=== PATIENT | female | born 1930 | race Caucasian/White ===

== ENCOUNTER → 2018-02-19 | Outpatient (CLI) | payer OTHER, BC | LOC: HYPER 07:00 → EDBD 07:00 → HYPER 09:07 | DX: S81.812A Laceration without foreign body, left lower leg, initial encounter (principal); S91.002A Unspecified open wound, left ankle, initial encounter; G30.0 Alzheimer's disease with early onset; G30.9 Alzheimer's disease, unspecified; Z85.820 Personal history of malignant melanoma of skin; Z98.49 Cataract extraction status, unspecified eye; Z87.891 Personal history of nicotine dependence; X58.XXXA Exposure to other specified factors, initial encounter; Y93.89 Activity, other specified; Y92.89 Other specified places as the place of occurrence of the external cause; Y99.8 Other external cause status ==

== ENCOUNTER → 2018-02-25 | Outpatient (CLI) | payer OTHER, BC | LOC: HYPER 12:50 | DX: S81.802D Unspecified open wound, left lower leg, subsequent encounter (principal); G30.0 Alzheimer's disease with early onset; Z87.891 Personal history of nicotine dependence; Z85.9 Personal history of malignant neoplasm, unspecified; X58.XXXD Exposure to other specified factors, subsequent encounter ==

== ENCOUNTER → 2018-03-04 | Outpatient (CLI) | payer OTHER, BC | LOC: HYPER 07:06 | DX: S81.802D Unspecified open wound, left lower leg, subsequent encounter (principal); G30.0 Alzheimer's disease with early onset; Z85.820 Personal history of malignant melanoma of skin; Z98.49 Cataract extraction status, unspecified eye; Z87.891 Personal history of nicotine dependence; X58.XXXD Exposure to other specified factors, subsequent encounter ==

== ENCOUNTER → 2018-03-18 | Outpatient (CLI) | payer OTHER, BC | LOC: HYPER 06:55 | DX: S81.812D Laceration without foreign body, left lower leg, subsequent encounter (principal); G30.0 Alzheimer's disease with early onset; Z85.828 Personal history of other malignant neoplasm of skin; Z98.49 Cataract extraction status, unspecified eye; Z87.891 Personal history of nicotine dependence; X58.XXXD Exposure to other specified factors, subsequent encounter ==

== ENCOUNTER → 2018-04-03 | Outpatient (CLI) | payer OTHER, BC | LOC: HYPER 07:10 | DX: S81.812D Laceration without foreign body, left lower leg, subsequent encounter (principal); G30.0 Alzheimer's disease with early onset; Z85.828 Personal history of other malignant neoplasm of skin; Z98.49 Cataract extraction status, unspecified eye; Z87.891 Personal history of nicotine dependence; X58.XXXD Exposure to other specified factors, subsequent encounter ==